=== PATIENT | female | born 1960 | race Caucasian/White ===

== ENCOUNTER 2020-04-30 05:04 | Emergency (ER) | payer OTHER ==
[~2020-04-30] VITALS: Ht 170.2 cm; Wt 92.1 kg
[2020-04-30] MEDS ORDERED: PAXIL40 MG PO (05:19)
[2020-04-30] MEDS ORDERED: JARDIANCE10 MG PO (05:20)
[2020-04-30] MEDS ORDERED: LISINOPRIL5 MG PO (05:20)
[2020-04-30] MEDS ORDERED: CHILDREN'S ZYRT10 M1 PO (05:21)
[2020-04-30 05:52] LABS: ABSOLUTE BASOPHILS 0.1 thou/uL (0.0-0.2); ABSOLUTE EOSINOPHILS 0.3 thou/uL (0.0-0.7); ABSOLUTE LYMPHOCYTES 4.8 thou/uL (0.8-5.3); ABSOLUTE MONOCYTES 0.8 thou/uL (0.0-1.2); ABSOLUTE NEUTROPHILS 10.4 thou/uL (1.6-8.1); BASOPHILS 0.4 %; EOSINOPHILS 1.5 %; HEMATOCRIT 51.1 % (37.0-47.0); HEMOGLOBIN 16.8 gm/dL (12.0-15.0); LYMPHOCYTES 29.2 %; MCH 29.4 pg (26.0-34.0); MCHC 32.8 g/dL (28.0-37.0); MCV 89.7 fL (80.0-100.0); MPV 7.8 fl. (7.2-11.1); NUCLEATED RBCS 0 /100WBC; PLATELET COUNT* 354 thou/uL (150-400); POLYS 63.9 %; RDW-CV 13.5 % (10.5-14.5); WBC 16.3 thou/uL (4.0-11.0)
[2020-04-30 05:59] LABS: CALCIUM 8.7 mg/dL (8.5-10.1); CREATININE 0.9 mg/dL (0.6-1.3); POTASSIUM 3.7 mmol/L (3.5-5.1)
[2020-04-30 06:02] LABS: URINE BILIRUBIN NEGATIVE (Negative); URINE BLOOD NEGATIVE (Negative); URINE CLARITY CLEAR; URINE COLOR YELLOW; URINE GLUCOSE-RANDOM 3+ (Negative); URINE KETONES NEGATIVE (Negative); URINE LEUKOCYTES-REFLEX NEGATIVE (Negative); URINE NITRITE-REFLEX NEGATIVE (Negative); URINE PROTEIN NEGATIVE (Negative); URINE SPECIFIC GRAVITY 1.015 (1.005-1.030); URINE UROBILINOGEN 0.2 E.U./dl (0.2-1.0)
[2020-04-30 06:04] LABS: ALBUMIN 3.9 g/dL (3.4-5.0); TOTAL BILIRUBIN 0.5 mg/dL (<0.1-1.0); TOTAL PROTEIN 8.4 g/dL (6.4-8.2)
[2020-04-30] MEDS ORDERED: ZOFRAN ODT4 MG PO (06:24)
[2020-04-30 06:53] VITALS: BP 125/79
--- NOTE | 2020-04-30 10:16 | EKG ---
[place] [address] ELECTROCARDIOGRAM REPORT Name: MARTHA CAREY Room: [facility]#: [id number] Admission: 04/30/20 Attend Phys: Discharge: 04/30/20 Date of : 60 Date of Service: 04/30/20 0524 Report #: [id number] THIS REPORT FOR: //name// [facility] ED Test Date: 2020-04-30 Test Time: 05:24:45 Pat Name: MARTHA CAREY Department: Room: Gender: Antenna Design Engineer: ERMIAS : [id number] Requested By: Jhoana Lorenzo Order Number: [id number] MD: Bob Rausch Measurements Intervals [place] Rate: 110 P: 35 [place]: 160 QRS: 13 QRSD: 108 T: 21 QT: 352 QTc: 477 Interpretive Statements Sinus tachycardia Inferior infarct, old Anterior infarct, old No previous ECG available for comparison Electronically Signed On 04-30-2020 10:16:23 [employer] by Bob Rausch [email or web address] <ELECTRONICALLY SIGNED> By: Bob Rausch MD, [facility] 04/30/20 1016 0524 0524 Bob Rausch MD, [facility] /EPI
== END 2020-04-30 06:53 | disposition home or self-care (01) ==
LOC: M.ERS 05:04
PROVIDERS: Personal Emergency Response Attendant
DX: E86.0 Dehydration (principal); Z20.828 Contact with and (suspected) exposure to other viral communicable diseases; R19.7 Diarrhea, unspecified; E11.9 Type 2 diabetes mellitus without complications; Z88.2 Allergy status to sulfonamides; Z88.8 Allergy status to other drugs, medicaments and biological substances; Z91.041 Radiographic dye allergy status; Z79.899 Other long term (current) drug therapy; Z90.710 Acquired absence of both cervix and uterus; Z85.3 Personal history of malignant neoplasm of breast